=== PATIENT | male | born 2000 | race Two or more races ===

== ENCOUNTER 2021-07-03 23:00 | Emergency (ER) | payer OTHER ==
[~2021-07-03] VITALS: Ht 175.3 cm; Wt 77.1 kg
[2021-07-03 23:00] VITALS: BP 120/69
== END 2021-07-03 23:30 | disposition home or self-care (01) ==
LOC: ER 23:07
DX: R09.89 Other specified symptoms and signs involving the circulatory and respiratory systems (principal); Z20.822 Contact with and (suspected) exposure to COVID-19
CPT/HCPCS: 99283; C9803; U0003